=== PATIENT | female | born 1945 | race Hispanic/Latino ===

== ENCOUNTER → 2019-03-19 | Outpatient (CLI) | payer MEDICARE, OTHER ==
--- NOTE | 2019-03-19 17:50 | CT ---
EXAM DESCRIPTION: CT ABDOMEN AND PELVIS WITHOUT AND WITH CONTRAST CLINICAL HISTORY: INCISIONAL HERNIA. COMPARISON: CT abdomen and pelvis 01/21/2018. TECHNIQUE: CT of the abdomen and pelvis are performed prior to and during IV bolus administration administration. Delayed phase imaging was also obtained . No oral contrast was given. FINDINGS: The lung bases are clear. The Liver, spleen, and pancreas are unremarkable. The gallbladder is surgically absent. The right and left kidneys are normal in contour without hydronephrosis, nephrolithiasis, or perinephric fluid collection. The ureters are normal. The partially distended bladder is normal in appearance. Redemonstration of a hernia along the inferior aspect of the prior midline incision which contain small amount of extraperitoneal fat and small portion of the anterior bladder (which measures approximately 2 x 1.5 cm, unchanged compared to prior examination. Delayed phase imaging demonstrates contrast opacification posterior bladder. No significant inflammatory change to suggest fat or bladder wall strangulation No focal bowel wall thickening or bowel obstruction. The appendix is not visualized. Mild atherosclerotic disease affects the aorta and its branches. No free fluid within the pelvis. Prior hysterectomy. No lymphadenopathy. No acute osseous abnormality. IMPRESSION: 1. Small anterior pelvic hernia along the inferior aspect of the prior midline incision containing small amount of extraperitoneal fat and small portion of the anterior bladder, unchanged. No significant inflammatory change to suggest fat or bladder wall strangulation. This exam was performed according to our departmental dose-optimization program, which includes automated exposure control, adjustment of the mA and/or kV according to patient size and/or use of iterative reconstruction technique. Electronically signed by: Yovani Pritchadr DO 03/19/2019 5:49 PM CDT
== END ==
LOC: LAB.O 08:35
PROVIDERS: ATTEND Surgery
DX: K43.2 Incisional hernia without obstruction or gangrene (principal)

== ENCOUNTER 2019-03-31 05:25 | Day surgery (SDC) | payer MEDICARE, OTHER ==
[2019-03-31] MEDS ORDERED: LACTATED RINGERS 1,000 ML ONE ×2 (07:11→10:29)
[2019-03-31] MEDS ORDERED: ceFAZolin SODIUM 1 GM VIAL ONE (07:11)
[2019-03-31] MEDS ORDERED: SODIUM CHL 0.9% 100ML MINI-BAG 100 ML IVPB ONE (07:12)
[2019-03-31] MEDS ORDERED: LACTATED RINGERS 1,000 ML IVS ONE (07:40)
--- NOTE | 2019-03-31 07:44 | RAD ---
EXAM DESCRIPTION: XR CHEST 2 VIEWS CLINICAL HISTORY: Preoperative respiratory evaluation. Z01.811. Hernia surgery planning. COMPARISON: None TECHNIQUE: PA/lateral FINDINGS: Heart size is normal. The lungs are clear. No acute bony abnormality. IMPRESSION: No acute cardiopulmonary process. Electronically signed by: James Ramos MD 03/31/2019 7:43 AM CDT
[2019-03-31] MEDS ORDERED: fentaNYL CITRATE INJ 50 MCG/ML AMP ONE (08:09)
[2019-03-31] MEDS ORDERED: ROCURONIUM BROMIDE 10 MG/ML VIAL ONE (08:10)
[2019-03-31] MEDS ORDERED: BUPIVACAINE 0.25% W/EPI 50 ML VIAL INJ ONE (08:10)
[2019-03-31] MEDS ORDERED: MIDAZOLAM INJ 2 MG/2 ML VIAL ONE (08:11)
[2019-03-31] MEDS ORDERED: KETAMINE HCL 100 MG/ML VIAL ONE (08:23)
[2019-03-31] MEDS ORDERED: HYDROmorphone HCL INJ 2 MG/ML VIAL ONE (09:06)
[2019-03-31] MEDS ORDERED: hydrALAZINE HCl 20 MG/ML VIAL ONE (09:32)
[2019-03-31] MEDS ORDERED: SUGAMMADEX SODIUM 200 MG/2 ML VIAL IV ONE (09:44)
[2019-03-31] MEDS ORDERED: raNITIdine HCL INJ 25 MG/ML VIAL IV ONE (10:00)
[2019-03-31] MEDS ORDERED: LIDOCAINE 1% 10 ML VIAL INJ ONE (10:00)
[2019-03-31] MEDS ORDERED: PROPOFOL 200 MG/20 ML VIAL IV ONE (10:00)
[2019-03-31] MEDS ORDERED: DEXAMETHASONE INJ 10 MG/ML VIAL IV ONE (10:00)
[2019-03-31] MEDS: HYDROmorphone HCL INJ 2 MG/ML VIAL ONE ×5 (10:30→11:10)
[2019-03-31] MEDS ORDERED: ONDANSETRON INJ 4 MG/2 ML VIAL ONE (11:16)
--- NOTE | 2019-03-31 11:26 | OP ---
DATE OF PROCEDURE: 03/31/19 PREOPERATIVE DIAGNOSIS: 1. Incisional hernia. POSTOPERATIVE DIAGNOSIS: 1. Incisional hernia. PROCEDURE: 1. Repair of incisional hernia with Surgimesh Onlay graft. SURGEON: Александр Rojas MD. DIVISION OPERATIONS SPECIALIST: Robbi Lagos MD. ANESTHESIA: General endotracheal anesthesia and local infiltration of 0.25% Marcaine with epinephrine. INDICATION: The patient is a 73-year-old female who has had left lower quadrant pain for some time. She also has significant back pain and has been receiving injections. CT scan reveals a midline incisional hernia in the lower abdomen which involves the bladder. There is no obvious hernia in the left lower quadrant. The patient was brought to the Surgical Suite today for repair of the incisional hernia and exploration of the left lower quadrant abdominal wall. FINDINGS: The defect was approximately 4 by 3 cm. It contained the bladder, which was reduced. Exploration of the left lower quadrant including having the patient Valsalva'd by Anesthesia and revealed no hernia defect in the left lower quadrant. PROCEDURE: After adequate general endotracheal anesthesia was obtained, the patient was prepped and draped in the usual sterile manner. A surgical time-out was taken. A previous Pfannenstiel incision was injected with local anesthesia and extended to the left side. The skin was incised with a knife and dissection was carried down through the skin and subcutaneous tissue using electrocautery and blunt dissection. When this was done, the fascia was identified and the hernia was identified. It was dissected free circumferentially and reduced below the floor of the canal. Scar tissue was incised back to good fascia. Hemostasis was noted to be adequate. At this point, the hernia defect was closed with interrupted #1 PDS foldable sutures. It was closed vertically. These placed initially and then tightened and tied sequentially. When this was done, the wound was irrigated with saline. At this point, the left lower quadrant was explored. The external inguinal canal was identified with no defect including, as noted, with a Valsalva. No other defects were identified. At this point, a 9 by 5 cm oval Surgimesh graft was placed over the repair and sutured circumferentially with interrupted 2-0 Prolene and 2-0 Vicryl sutures. When this was done, again, hemostasis was noted to be adequate. The wound was irrigated with saline. The subcutaneous tissue was then closed with interrupted simple sutures in two layers. The skin edges were approximated with skin stapler. Sterile pressure dressing was applied. The patient was awakened and taken to the Recovery Room. Her Gonzales catheter was removed in the Operating Room. Estimated blood loss was 100 mL. All sponge, needle and instrument counts were correct. #[id number] [facility]
[2019-03-31] MEDS ORDERED: PROMETHAZINE HCL INJ 25 MG/ML VIAL ONE (11:44)
[2019-03-31] MEDS ORDERED: SODIUM CHLORIDE 0.9% 100ML 0 ML IVPB ONE (11:45)
[2019-03-31] MEDS ORDERED: METOCLOPRAMIDE HCL INJ 10 MG/2 ML VIAL ONE (11:46)
[2019-03-31] MEDS ORDERED: KETOROLAC TROMETHAMINE INJ 30 MG/ML VIAL ONE (11:53)
[2019-03-31] MEDS ORDERED: HYDROcodone 5MG/APAP 325MG 1 EA TAB ONE (12:40)
[2019-03-31] MEDS ORDERED: HYDROcodone 5MG/APAP 325MG 1 EA TAB PO ONE (12:45)
[2019-03-31 15:17] VITALS: BP 140/73; TEMP 97.2; O2SAT 94
== END 2019-03-31 14:50 | disposition home or self-care (01) ==
LOC: AMB 05:25
PROVIDERS: ATTEND Surgery
DX: K43.2 Incisional hernia without obstruction or gangrene (principal); K21.9 Gastro-esophageal reflux disease without esophagitis; G47.00 Insomnia, unspecified; M79.7 Fibromyalgia; M81.0 Age-related osteoporosis without current pathological fracture; E55.9 Vitamin D deficiency, unspecified; F41.9 Anxiety disorder, unspecified; R00.1 Bradycardia, unspecified; Z87.442 Personal history of urinary calculi; Z79.82 Long term (current) use of aspirin; Z79.899 Other long term (current) drug therapy
CPT/HCPCS: 00832; 36415; 49560; 49568; 71046; 80048; 81001; 85025; 93005; C1781; J0360; J0690; J1100; J1170; J1885; J2250; J2405; J2765; J2780; J3010; J3490; J7050; J7120

== ENCOUNTER → 2019-11-12 | Outpatient (CLI) | payer MEDICARE, OTHER | LOC: LAB.O 15:32 | PROVIDERS: ATTEND Surgery | DX: R30.0 Dysuria (principal) ==